=== PATIENT | male | born 1960 | race African-American/Black ===

== ENCOUNTER 2021-01-17 08:28 | Outpatient (CLI) | payer MEDICARE, MEDICAID | END 2021-01-17 08:29 | disposition home or self-care (01) | LOC: CSHMRI 08:28 | PROVIDERS: ATTEND Anesthesiology | DX: G89.4 Chronic pain syndrome (principal); M25.551 Pain in right hip; M54.17 Radiculopathy, lumbosacral region; Z53.9 Procedure and treatment not carried out, unspecified reason ==

== ENCOUNTER 2021-02-14 11:39 | Outpatient (CLI) | payer MEDICARE, MEDICAID | END 2021-02-14 11:40 | disposition home or self-care (01) | LOC: CSHCT 11:39 | PROVIDERS: ATTEND Anesthesiology | DX: G89.4 Chronic pain syndrome (principal); M54.17 Radiculopathy, lumbosacral region; M47.816 Spondylosis without myelopathy or radiculopathy, lumbar region; M48.061 Spinal stenosis, lumbar region without neurogenic claudication; D35.01 Benign neoplasm of right adrenal gland; Q76.49 Other congenital malformations of spine, not associated with scoliosis | CPT/HCPCS: 72131 ==

== ENCOUNTER 2025-06-07 10:10 | Emergency (ER) | payer OTHER ==
[2025-06-07] MEDS ORDERED: Iopamidol 300 61% 100 ML VIAL FS ONE (10:35)
[2025-06-07 11:08] LABS: #Basophils Less than 0.03 10x3/uL (0.0-0.2); #Eosinophils 0.12 10x3/uL (0.0-0.5); #Monocytes 0.67 10x3/uL (0.0-1.1); #Neutrophils 6.45 10x3/uL (1.5-8.4); %Basophils 0.2 % (0.0-2.0); %Eosinophils 1.3 % (0.0-6.0); %Lymphocytes 23.1 % (18.0-47.0); %Monocytes 7.1 % (0.0-10.0); %Neutrophils 68.0 % (40.0-75.0); Hematocrit 45.9 % (38.8-50.0); Hemoglobin 14.8 g/dL (13.5-17.5); Mean Corpuscular Hemoglobin 27.0 pg (27.0-33.0); Mean Corpuscular Volume 83.8 fL (81.2-95.1); Platelet Count 283 10x3/uL (150-450); Red Blood Cell (RBC) Count 5.48 10x6/uL (4.32-5.72); White Blood Cell (WBC) Count 9.48 10x3/uL (3.5-10.5)
[2025-06-07 11:41] LABS: ALT (SGPT) 15 U/L (Less than 45); AST (SGOT) 25 U/L (11-34); Albumin 4.2 g/dL (3.1-4.5); Alkaline Phosphatase 116 U/L (40-110); Anion Gap 13 mmol/L (10-20); BUN (Urea Nitrogen) 14 mg/dL (8.4-25.7); Bilirubin, Total 0.6 mg/dL (0.3-1.2); Calc. Creatinine Clearance 0 mL/min (70-130); Calcium 9.1 mg/dL (7.8-10.44); Carbon Dioxide 24 mmol/L (23-31); Chloride 106 mmol/L (98-107); Globulin 3.9 g/dL (2.4-3.5); Glucose 99 mg/dL (80-115); Lipase 22 U/L (8-78); Potassium 4.1 mmol/L (3.5-5.1); Sodium 139 mmol/L (136-145)
[2025-06-07 12:35] LABS: Glucose, Urine (Dipstick) >=1000 mg/dL (Negative); Leukocyte Negative (Negative); Protein, Urine (Dipstick) Negative (Neg-Trace); Specific Gravity, Urine 1.010 (1.005-1.030)
[2025-06-07 12:56] LABS: CAUTI Indications for Culture Pelvic or flank pain; RBC/HPF 0-3 HPF (0-3); WBC/HPF 0-3 HPF (0-3)
[2025-06-07 12:57] LABS: Bacteria/HPF Rare-Few HPF (None Seen); Urine Culture Reflex No No
== END 2025-06-07 14:04 | disposition home or self-care (01) ==
LOC: CSHERS 10:10
DX: K52.9 Noninfective gastroenteritis and colitis, unspecified (principal); I10 Essential (primary) hypertension; E11.9 Type 2 diabetes mellitus without complications; E66.9 Obesity, unspecified
CPT/HCPCS: 74177; 80053; 81001; 83690; 85025; J2270; 36415; 96361; 96374